=== PATIENT | female | born 1990 | race Caucasian/White ===

== ENCOUNTER 2023-04-13 13:06 | Outpatient (REF) | payer MEDICAID, SELFPAY ==
[2023-04-13 16:14] LABS: MANUAL DIFF FLAG NO
[2023-04-13 16:20] LABS: Basophils Percent Auto 0.4 % (0-2); Eosinophils Percent Auto 0.4 % (0-4); Hematocrit 37.7 % (37.0-47.0); Hemoglobin 12.5 g/dl (12.0-16.0); Imm Gran Abs Auto 0.04 X10*3/uL (0.00-0.03); Imm Gran Pct Auto 0.4 % (0.0-0.4); Lymphocytes Percent Auto 18.1 % (20-40); Mean Corpuscular HGB Conc 33.2 g/dl (31.0-35.0); Mean Corpuscular Hemoglobin 28.3 pg (27.0-33.0); Mean Corpuscular Volume 85.3 fL (80.0-98.0); Mean Platelet Volume 10.1 fL (9.4-12.3); Monocytes Absolute Auto 0.4 X10*3/uL (0.1-1.2); Monocytes Percent Auto 3.5 % (2-11); Neutrophils Absolute Auto 8.7 x10*3/uL (2.0-8.3); Neutrophils Percent Auto 77.2 % (45-73); Platelet Count 353 X10*3/uL (160-400); Red Blood Count 4.42 X10*6/uL (4.20-5.50); White Blood Count 11.3 X10*3/uL (4.8-10.8)
[2023-04-13 16:32] LABS: Estimated Average Glucose 100 mg/dL; Hemoglobin A1c % 5.1 % (<6.0)
[2023-04-13 16:51] LABS: Alanine Aminotransferase 15 U/L (0-31); Albumin Level 4.6 g/dL (3.5-5.0); Alkaline Phosphatase 74 U/L (39-117); Anion Gap 15 (12-20); Aspartate Amino Transferase 19 U/L (5-31); Bilirubin Total 0.3 mg/dL (0.0-1.0); Blood Urea Nitrogen 14 mg/dL (9-16); Calcium 9.7 mg/dL (8.4-10.2); Carbon Dioxide 23 mmol/L (22-29); Chloride 104 mmol/L (96-108); Cholesterol 148 mg/dL (<200); Estimated Glomerular Filt Rate > 60; Glucose Random 76 mg/dL (60-115); HDL Cholesterol 51 mg/dL (>40); LDL Cholesterol Calculated 78 mg/dL (<100); Potassium 3.8 mmol/L (3.3-5.1); Sodium 138 mmol/L (135-145); Triglycerides 98 mg/dL (<150)
[2023-04-13 17:09] LABS: TSH reflex Free T4 0.78 uIU/mL (0.32-4.0)
[2023-04-13 17:20] LABS: Folate 11.2 ng/mL (> or = 4.0); Vitamin B12 630 pg/mL (200-900)
[2023-04-14 03:48] LABS: CT PCR NOT DETECTED (Not Detect.); NG PCR NOT DETECTED (Not Detect.)
[2023-04-14 13:55] LABS: Syphilis Screen Nonreactive (Nonreactive)
[2023-04-16 03:51] LABS: HBc Num1 0.07 S/CO (0.00-0.79); HBsAGNum1 0.43 S/CO (0.00-0.99); HIV AB/AG Nonreactive (Nonreactive); HIV Num 1 0.05 S/CO (0.00-0.99); Hepatitis B Core Antibody Nonreactive (Nonreactive); Hepatitis B Surface Antigen Negative (Negative); ~HepC Num1 0.09 S/CO (0.00-0.79); ~Hepatitis B Surface Antibody REACTIVE (Nonreactive); ~Hepatitis C Antibody Nonreactive (Nonreactive)
[2023-04-18 17:38] LABS: VITAMIN D (1,25 OH) D3 82 pg/mL; Vit D (1,25-Dihydroxy) Total 82 pg/mL (18-72); Vitamin D (1,25 OH) D2 <8 pg/mL
== END 2023-04-13 13:07 | disposition home or self-care (01) ==
LOC: HO.HHCL 13:06
PROVIDERS: Visit Provider Student in an Organized Health Care Education/Training Program
DX: Z00.00 Encounter for general adult medical examination without abnormal findings (principal); Z11.4 Encounter for screening for human immunodeficiency virus [HIV]; Z11.3 Encounter for screening for infections with a predominantly sexual mode of transmission
CPT/HCPCS: 0353U; 80053; 80061; 82607; 82652; 82746; 83036; 84443; 85025; 86704; 86706; 86780; 86803; 87340; 87389

== ENCOUNTER 2024-07-08 07:30 | Emergency (ER) | payer MEDICAID, SELFPAY ==
--- NOTE | ~2024-07-08 | XR_ITS ---
EXAMINATION: XR HAND AND WRIST COMPLETE RIGHT HISTORY: pain COMPARISON: There are no prior studies available for comparison. FINDINGS: Four views of the right hand and wrist including a scaphoid view are submitted. Osseous mineralization is normal. There is no fracture or dislocation. The joint spaces are preserved. The soft tissues are unremarkable. XR/XR hand wrist RT IMPRESSION: Unremarkable examination of the right hand and wrist. Electronically signed by: Maximus Maldonado MD 07/08/2024 08:12 AM [place]
[2024-07-08 07:34] VITALS: BP 141/85; PULSE 106; RESP 20; TEMP 36.1; O2SAT 100; BMI 43.9
--- NOTE | 2024-07-08 09:51 | ED_ITS ---
HPI - Extremity Problem General Chief complaint: Extremity Problem Stated complaint: Discomfort R arm Time Seen by Provider: 07/08/24 09:26 Source: patient and RN notes reviewed Mode of arrival: ambulatory Limitations: no limitations History of Present Illness ED Provider: Leonarda Pan PA-C HPI Narrative: This is a 34-year-old female, with no known medical problems, who presents emergency department complaints of right wrist pain and swelling x1 week. Patient denies any known trauma or injury. Denies performing any repetitious movements. Denies taking any medications at home to treat her current symptoms. She does report intermittent numbness and tingling into her fingers. She has been applying warm compresses which has provided her with some relief. No other complaints or concerns at this time. Related Data Previous Rx's ?Medication ?Instructions ?Recorded ibuprofen 600 mg tablet 600 mg PO Q6H PRN pain #30 tabs 07/08/24 Allergies Allergy/AdvReac Type Severity Reaction Status Date / Time No Known Allergies Allergy Verified 07/08/24 07:35 Review of Systems Review of Systems: Yes all other systems are reviewed and are negative [facility] Social History Social History Advance Directives: No Advance Directives Information Provided: Yes Physical Exam Vital Signs: Vital Signs: Last Vital Signs Temp 97.0 F 07/08/24 07:34 Pulse 106 H 07/08/24 07:34 Resp 20 07/08/24 07:34 BP 141/85 H 07/08/24 07:34 Pulse Ox 100 07/08/24 07:34 O2 Del Method Room Air 07/08/24 07:34 BMI result Body Mass Index 43.9 Const: Other: General: Awake, alert, and oriented X3. No acute distress. HEENT: Normal inspection CVS: Normal heart rate and rhythm. Pulses normal. Respiratory: No respiratory distress Skin: Warm, dry, no rashes noted to exposed skin. Normal skin color. Normal skin turgor. Extremities: Right wrist, with no obvious bony deformity or swelling. No overlying erythema or warmth. Strong radial pulse. Distal sensation circulation intact. Capillary refill less than 2 seconds. Positive prayer sign, negative Tinel, negative Ravin's test. Able to oppose thumb to all digits. Pain to the entire hand without any specific point tenderness. Neuro: Oriented X 3. No motor deficit. No sensory deficit. Medical Decision Making Medical Decision Making [facility] Narrative: This is a 34-year-old female, with no known medical problems, who presents emergency department with complaints of right hand and wrist pain since last week. On arrival, patient mildly tachycardic at 106 beats per minute, blood pressure 141/85, all other vital signs within normal limits. She is speaking full sentences under no acute distress. Full ROM of the wrist however with pain elicited. Differential diagnoses include carpal tunnel syndrome, fracture- unlikely, sprain, strain, contusion. X-rays were performed revealing no acute abnormalities. Discussed findings with patient. Symptoms at presentation likely secondary to carpal tunnel like syndrome. Will place patient in wrist splint, given strict return precautions. Also given orthopedic referral. She understands and agrees with plan. Patient stable for discharge. Differential Diagnosis Differential Diagnoses: The differential diagnosis associated with the presentation includes See above Radiology Impression Discussion of test interpretation with radiology: I have reviewed the radiologist's reading. Radiologist Impression: HISTORY: pain COMPARISON: There are no prior studies available for comparison. FINDINGS: Four views of the right hand and wrist including a scaphoid view are submitted. Osseous mineralization is normal. There is no fracture or dislocation. The joint spaces are preserved. The soft tissues are unremarkable. XR/XR hand wrist RT IMPRESSION: Unremarkable examination of the right hand and wrist. Electronically signed by: Maximus Maldonado MD 07/08/2024 08:12 AM EST Dictated By: Maximus Maldonado Discharge Plan Discharge Clinical Impression: Acute wrist pain, Carpal tunnel syndrome Patient Disposition: Home, Self-Care Instructions: Wrist Injury (ED) Additional Instructions: You were seen in the emergency department due to right wrist pain. Your x-rays were normal today. You likely have inflammation in your wrist causing you to have the symptoms. Carpal tunnel as a mission where the nerve in your wrist is compressed causing you to have pain, weakness, and inflammation in your wrist. This is likely the cause of your symptoms. Please rest, apply ice, take anti-inflammatory medication, ibuprofen, and use wrist splint. Wear wrist splint at night. Gentle range of motion and stretching of your wrist can also help. Follow-up with the records management specialist if your symptoms do not improve. If any new or worsening symptoms occur including but not limited to chest pain or shortness of breath, please seek emergent care. Prescriptions: New ibuprofen 600 mg tablet 600 mg PO Q6H PRN (Reason: pain) Qty: 30 0RF Referrals: [facility] [Provider Group] Stand Alone Forms: Work/School Release Print Language: Hungarian
[2024-07-08 10:13] VITALS: BP 141/85; PULSE 106; RESP 20; TEMP 36.1; O2SAT 100
== END 2024-07-08 10:34 | disposition home or self-care (01) ==
PROVIDERS: Emergency Provider Emergency Medicine; PCP Student in an Organized Health Care Education/Training Program
DX: G56.01 Carpal tunnel syndrome, right upper limb (principal); M25.531 Pain in right wrist
CPT/HCPCS: 73110; 73130; 99282; 99283